=== PATIENT | male | born 1995 | race Caucasian/White ===

== ENCOUNTER 2018-04-28 00:11 | Emergency (ER) | payer SELFPAY, MEDICAID | END 2018-04-28 02:15 | disposition home or self-care (01) | LOC: M ED 00:11 | DX: S40.012A Contusion of left shoulder, initial encounter (principal); T14.8XXA Other injury of unspecified body region, initial encounter; W19.XXXA Unspecified fall, initial encounter; Y92.830 Public park as the place of occurrence of the external cause; Y93.22 Activity, ice hockey; Y99.9 Unspecified external cause status; Z79.899 Other long term (current) drug therapy | CPT/HCPCS: 73030 ==